=== PATIENT | male | born 1990 | race Caucasian/White ===

== ENCOUNTER 2018-02-23 17:20 | Emergency (ER) | payer MEDICAID ==
[2018-02-23 17:34] VITALS: BP 126/86
--- NOTE | 2018-02-23 18:07 | ER Document Report ---
HPI - HPI Pain Level: Denies Context: 27-year-old deaf patient with a history of ADHD, OCD, bipolar, schizophrenia, seizures and insomnia has all of his medications except for the Thorazine 200 mg every night that he takes. He only has 2 pills left. They are trying to establish medical care here in [place] they moved here mid December. I reassured mom that I would give him his neurology referral [facility] and psychiatric care referral. He is here with mom and sister. Associated Symptoms: None Exacerbated by: Denies Relieved by: Denies Similar symptoms previously: No Recently seen / treated by doctor: No - ROS ROS below otherwise negative: Yes Systems Reviewed and Negative: Yes All other systems reviewed and negative Past Medical History - General Information source: Patient, Parent - Social History Smoking Status: Never Smoker Frequency of alcohol use: None Drug Abuse: None Lives with: Family Family History: Reviewed & Not Pertinent Patient has suicidal ideation: No Patient has homicidal ideation: No Neurological Medical History: Reports: Hx Seizures Renal/ Medical History: Denies: Hx Peritoneal Dialysis Psychiatric Medical History: Reports: Hx Attention Deficit Hyperactivity Disorder, Hx Bipolar Disorder, Hx Schizophrenia Surgical Hx: Negative Vertical Provider Document - CONSTITUTIONAL Agree With Documented VS: Yes - INFECTION CONTROL TRAVEL OUTSIDE OF THE [place] IN LAST 30 DAYS: No - HEENT HEENT: Normocephalic Notes: PERRL - NECK Neck: Supple - RESPIRATORY Respiratory: Breath Sounds Normal, No Respiratory Distress - CARDIOVASCULAR Cardiovascular: Regular Rate, Regular Rhythm - GI/ABDOMEN Gastrointestinal: Abdomen Soft, Abdomen Non-Tender - MUSCULOSKELETAL/EXTREMETIES Musculoskeletal/Extremeties: MAEW - NEURO Level of Consciousness: Awake, Alert - DERM Integumentary: No Rash Course - Vital Signs Vital signs: Temp Pulse Resp BP Pulse Ox 98.3 F 84 18 126/86 H 95 02/23/18 17:31 18 17:31 02/23/18 17:31 18 17:31 18 17:31 Discharge - Discharge Clinical Impression: Medication refill Condition: Good Disposition: HOME, SELF-CARE Instructions: Bipolar Disorder ([facility]), Insomnia ([facility]), Schizophrenia ([facility]) Additional Instructions: Resources given to you for his psychiatric medication refills and referral for neurology for his seizure medication Return to the emergency room any concerns Prescriptions: Chlorpromazine HCl [Chlorpromazine HCL 200 mg Tablet] 1 tab PO QHS #30 tab Referrals: THEODORA SIMON MD [NO LOCAL MD] - Follow up as needed
== END 2018-02-23 18:41 | disposition home or self-care (01) ==
LOC: ER 17:20
DX: Z76.0 Encounter for issue of repeat prescription (principal)
CPT/HCPCS: 99281

== ENCOUNTER 2018-04-05 18:04 | Emergency (ER) | payer MEDICAID, OTHER ==
[2018-04-05 18:16] VITALS: BP 135/93
[2018-04-05] MEDS ORDERED: DIVALPROEX SODIUM 250 MG TABLET.DR PO ONE (19:29)
--- NOTE | 2018-04-05 19:29 | ER Document Report ---
HPI - HPI Patient complains to provider of: Indication refill Onset: Last week Pain Level: Denies Context: Patient presents with mother who reports that patient has been off of his usual medications for the past week. Patient does have a history of bipolar, schizophrenia, seizures ADHD and is deaf. Mother is translating via sign language for patient. Mother states that patient has had a seizure about every 3-4 days due to being off of his seizure medication. Mother describes his seizures as staring spells. Mother denies any tonic-clonic or grand mal seizures. [place] this [place] and has not gotten established with a primary doctor to refill his usual medications. Patient does have a pharmacy generated medication list with him. Associated Symptoms: Other - Seizures. denies: Fever, Headache, Vomiting Exacerbated by: Denies Relieved by: Denies Similar symptoms previously: Yes Recently seen / treated by doctor: No - ROS ROS below otherwise negative: Yes Systems Reviewed and Negative: Yes All other systems reviewed and negative - CONSTITUTIONAL Constitutional: DENIES: Fever, Chills - NEURO Neurology: DENIES: Headache, Weakness, Vision blurred, Dizzinesss / Vertigo - RESPIRATORY Respiratory: DENIES: Trouble Breathing, Coughing - GASTROINTESTINAL Gastrointestinal: DENIES: Abdominal Pain, Black / Bloody Stools - MUSCULOSKELETAL Musculoskeletal: DENIES: Extremity pain - DERM Skin Color: Normal Skin Problems: None Past Medical History - General Information source: Parent - Social History Smoking Status: Never Smoker Frequency of alcohol use: None Drug Abuse: None Occupation: None Lives with: Family Family History: Reviewed & Not Pertinent Patient has suicidal ideation: No Patient has homicidal ideation: No - Medical History Medical History: Other - Deaf Neurological Medical History: Reports: Hx Seizures Renal/ Medical History: Denies: Hx Peritoneal Dialysis Malignancy Medical History: Reports Other - Brain tumor Psychiatric Medical History: Reports: Hx Attention Deficit Hyperactivity Disorder, Hx Bipolar Disorder, Hx Schizophrenia Vertical Provider Document - CONSTITUTIONAL Agree With Documented VS: Yes Exam Limitations: Other - deaf General Appearance: WD/WN - INFECTION CONTROL TRAVEL OUTSIDE OF THE [place] IN LAST 30 DAYS: No - HEENT HEENT: Atraumatic, Normocephalic - NECK Neck: Normal Inspection, Supple - RESPIRATORY Respiratory: Breath Sounds Normal, No Respiratory Distress - CARDIOVASCULAR Cardiovascular: Regular Rate, Regular Rhythm - BACK Back: Normal Inspection - MUSCULOSKELETAL/EXTREMETIES Musculoskeletal/Extremeties: MAKOKI FROM - NEURO Level of Consciousness: Awake, Alert, Appropriate - DERM Integumentary: Warm, Dry, No Rash Course - Re-evaluation Re-evalutation: 04/05/18 19:[address] Guerra who agrees with a 10-day refill of his usual medications and recommends outpatient follow-up with mental health as well as primary care for any additional refills. - Vital Signs Vital signs: Temp Pulse Resp BP Pulse Ox 98.6 F 111 H 20 135/93 H 97 04/05/18 18:12 04/05/18 18:12 04/05/18 18:12 04/05/18 18:12 04/05/18 18:12 Discharge - Discharge Clinical Impression: Medication refill, Seizure disorder, Hx of bipolar disorder Condition: Stable Disposition: HOME, SELF-CARE Instructions: Seizure, Known Epileptic ([facility]) Additional Instructions: Return immediately for any new or worsening symptoms Followup with your primary care provider, call tomorrow to make a followup appointment Follow-up with a mental health provider for additional refills of your usual medications. The space planner should give you a call tomorrow, if you do not hear from her her name is Leno Restrepo and her office number is [phone] Prescriptions: Benztropine Mesylate 1 mg PO BID #20 tablet Divalproex Sodium [Depakote] 1,000 mg PO BID #40 tablet. Primidone [Mysoline 50 mg Tablet] 50 mg PO BID #20 tablet Propranolol HCl [Inderal 10 mg Tablet] 10 mg PO Q12 #20 tab Referrals: [facility] [Provider Group] - Follow up as needed [facility] [Provider Group] - Follow up as needed [facility] [Provider Group] - Follow up as needed
== END 2018-04-05 19:45 | disposition home or self-care (01) ==
LOC: ER 18:04
DX: G40.909 Epilepsy, unspecified, not intractable, without status epilepticus (principal)
CPT/HCPCS: 99282